=== PATIENT | male | born 1960 | race Caucasian/White ===

== ENCOUNTER 2018-07-15 17:47 | Emergency (ER) | payer OTHER, SELFPAY ==
[2018-07-15 17:52] VITALS: BP 157/79; PULSE 112; RESP 16; TEMP 36.8; O2SAT 97
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
[2018-07-15 19:06] VITALS: BP 124/77; PULSE 103; RESP 14; TEMP 37.2; O2SAT 95
== END 2018-07-15 19:09 | disposition home or self-care (01) ==
PROVIDERS: Emergency Provider Student in an Organized Health Care Education/Training Program
DX: S49.92XA Unspecified injury of left shoulder and upper arm, initial encounter (principal); R93.6 Abnormal findings on diagnostic imaging of limbs; V86.52XA Driver of snowmobile injured in nontraffic accident, initial encounter; Y93.29 Activity, other involving ice and snow; I10 Essential (primary) hypertension
CPT/HCPCS: 99283; 73030; L3650

== ENCOUNTER 2018-11-03 00:36 | Outpatient (CLI) | payer OTHER, SELFPAY ==
--- NOTE | 2018-11-03 13:05 | DI.CT_ITS ---
SYMPTOMS/DIAGNOSIS: CHRONIC NASAL CONGESTION, R09.81 CT SCAN OF THE SINUSES: Multiple contiguous axial images of the sinuses were performed according to the [facility] protocol. There are no priors for comparison. There is mild mucosal thickening in the left frontal sinus. There is near-complete opacification of the right frontal sinus. There is opacification of nearly all the ethmoid air cells bilaterally. There is moderate mucosal thickening in the maxillary sinuses bilaterally with a question of bilateral fluid levels. There is mild mucosal thickening in the sphenoid sinuses bilaterally. The mastoid air cells are well pneumatized. The osseous structures appear grossly unremarkable. The orbits and retroorbital soft tissues are unremarkable. IMPRESSION: 1. Findings consistent with moderately severe chronic sinusitis, predominantly involving the frontal sinuses and ethmoid air cells. 2. Possible small fluid levels in the maxillary sinuses suggesting acute sinusitis.
== END 2018-11-03 00:56 ==
PROVIDERS: Visit Provider Otolaryngology
DX: J32.1 Chronic frontal sinusitis (principal); J32.2 Chronic ethmoidal sinusitis; J01.00 Acute maxillary sinusitis, unspecified
CPT/HCPCS: 70486

== ENCOUNTER 2021-05-17 09:19 | Emergency (ER) | payer BC, SELFPAY ==
[2021-05-17] VITALS (21 sets, daily range): BP systolic 104–188; BP diastolic 50–93; PULSE 98–118; RESP 4–39; TEMP 37.1; O2SAT 89–99
--- NOTE | 2021-05-17 09:15 | RT.EKG_ITS ---
APPROVED REPORT Exam: Resting ECG Reason for Exam: sob Patient Location: E HR:105 bpm ECG Measurements Heart Rate 105 AXIS CO 140 P 39 QRSd 91 QRS 46 QT 290 T 211 QTc 383 Conclusion Sinus tachycardia...rate> 99 Nonspecific repol abnormality, diffuse leads...ST dep, T flat/neg, ant/lat/inf. Sinus. Less than 1mm ST depression in V3-4. No STEMI. I have reviewed and interpreted ECG and agree with software generated interpretation.
--- NOTE | 2021-05-17 09:21 | ED.GENADUL_ITS ---
Discharge Plan Disposition Patient Disposition: HOME Condition: Improving Discharge Details Clinical Impression: Acute asthma exacerbation Primary Care Provider: Roxana Duckworth ED Provider: Cielo Dawson Home Meds and New Rx's Prescriptions: New prednisone 20 mg tablet See Rx Instructions .ROUTE .COMPLEX Qty: 18 RF: 0 budesonide-formoterol [Symbicort] 80-4.5 mcg/actuation HFA aerosol inhaler 2 puff inhalation BID Qty: 10.2 RF: 0 levofloxacin 750 mg tablet 750 mg PO DAILY 5 Days Qty: 5 RF: 0 Continued albuterol sulfate [ProAir HFA] 8.5 GM HFA aerosol inhaler 2 puff Inhalation Q4H PRN Qty: 1 RF: 0 montelukast [Singulair] 10 mg tablet 10 mg PO DAILY 1 Days Qty: 30 RF: 6 hydrochlorothiazide 25 mg tablet 25 mg PO DAILY Qty: 90 RF: 3 lisinopril 10 mg tablet 10 mg PO DAILY Qty: 90 RF: 3 budesonide-formoterol [Symbicort] 80-4.5 mcg/actuation HFA aerosol inhaler 2 puff inhalation BID Qty: 10.2 RF: 11 multivitamin 1 EACH capsule 1 cap PO DAILY RF: 0 Discharge Instructions Instructions: Asthma (ED) Additional Instructions: Drink plenty of fluids and get plenty of rest. Prescriptions for steroids and Symbicort have been sent electronically to your pharmacy. Use the albuterol inhaler that you were given as needed and directed for shortness of breath, cough or wheezing. Call your primary care doctor on Wednesday to schedule a follow-up appointment for reevaluation. Follow-up with pulmonology Dr. Cuevas for reevaluation and for consideration for repeat pulmonary function testing. Referrals: Sully Cuevas MD [ [facility] STAFF PHYSICIAN] - Discharge Data Discharge Date/Time-TO BE ENTERED AT DEPARTURE: 05/17/21 14:14 Discharge Physician: Cielo Dawson Medical Decision Making 61-year-old male with a questionable history of asthma per pulmonary few years ago with a history of chronic sinus congestion and cough, on Symbicort which she ran out of 4 days ago presents with increasing shortness of breath and cough over the past few days, significantly worse today. Review of records note that patient had a PFT with Dr. Michael Brink in 2018 for a chronic nocturnal cough which was normal with a questionable diagnosis of asthma. Patient appears short of breath, speaking in 2-3 word sentences. Oxygen saturation 88% on room air, increased to 95% on 2 L nasal cannula. Heart rate 110s. He is afebrile. He has diminished breath sounds and wheezing throughout. Differential diagnosis includes asthma exacerbation, bronchitis, pneumonia, PE, Covid. Will place an IV, bolus ivf, obtain screening labs, CT chest and give albuterol and Solu-Medrol and reassess. Patient reassessed and he feels better. Peak flow increased from 150 to 300s. Labs and imaging reviewed. Normal white blood cell count at 7. Troponin negative. Covid negative. CT chest negative. Patient breathing improved and improvement in air movement but still with wheezing. Oxygen saturation 96% on 2 L, decreased to 92% on room air. Will give another neb treatment and reassess. Patient reassessed after additional neb and he felt much better and feels good to go home. Reassessment of lung sounds note significant improvement in air movement with scattered wheezing. Patient feels good to go home. Prescriptions for steroids and Symbicort sent electronically to his pharmacy. He was given an albuterol inhaler to go. As he has no complaint of fever, is a non-smoker, no productive sputum and no significant pneumonia noted on CT, will hold on antibiotics at this time. Patient placed on care management list to help arrange for a follow-up appointment with Dr. Winter for reevaluation and for consideration for repeat PFT. Usual and customary return precautions given prior to discharge. After patient discharge, in-house radiologist read the CT noting discrepancies with subtle bilateral infiltrates left lower lobe and right middle lobe with appropriate follow-up recommended. These findings were discussed with patient over the phone. He was notified that a prescription for Levaquin was sent electronically to his pharmacy. He was advised that he can start this antibiotic now or he can wait if his symptoms do not improve or worsen as he has no fever, productive cough with a normal white blood cell count at this time. Medical Records Medical records reviewed: Yes I reviewed the patient's medical records. Imaging Data Radiologic Study: Radiologist's impression: CTA Chest With Contrast Exam date and time: 05/17/2021 9:40 AM Age: 61 years old Clinical indication: Other: SOB TECHNIQUE: Imaging protocol: Computed tomographic angiography of the chest with contrast. 3D rendering (Not supervised by radiologist): MIP and/or 3D reconstructed images were created by the technologist. Radiation optimization: All CT scans at this facility use at least one of these dose optimization techniques: automated exposure control; mA and/or kV adjustment per patient size (includes targeted exams where dose is matched to clinical indication); or iterative reconstruction. Contrast material: OMNIPAQUE 350; Contrast volume: 100 ml; Contrast route: INTRAVENOUS (IV); COMPARISON: No relevant prior studies available. FINDINGS: Pulmonary arteries: Normal. No pulmonary emboli. Aorta: Unremarkable. No aortic aneurysm. No aortic dissection. Lungs: Unremarkable. No consolidation. No masses. Pleural spaces: Unremarkable. No pneumothorax. No pleural effusion. Heart: Unremarkable. No cardiomegaly. No pericardial effusion. Lymph nodes: Unremarkable. No enlarged lymph nodes. Bones/joints: Unremarkable. No acute fracture. Soft tissues: Unremarkable. IMPRESSION: No acute findings. Lab Data Lab results reviewed: Yes I reviewed the patient's lab results. Labs: Laboratory Tests Range/Units 05/17/21 05/17/21 05/17/21 09:40 09:40 09:40 WBC (4.4-10.8) 10^3/uL 7.65 RBC (4.36-5.78) 10^6/uL 4.48 Hgb (13.5-17.5) g/dL 13.8 Hct (40.0-50.0) % 41.5 MCV (80-95) fL 92.6 MCH (27.0-33.0) pg 30.8 MCHC (32.0-36.0) % 33.3 RDW (11.8-14.1) % 12.3 Plt Count (130-400) 10^3/uL 311 MPV (8.0-11.0) fL 9.7 Immature Gran % 0.3 Neutrophils % 59.8 Lymphocytes % 23.7 Monocytes % 6.7 Eosinophils % 8.5 Basophils % 1.0 Nucleated RBC % % 0 Absolute Neutrophils (1.2-6.7) 10^3/uL 4.58 Absolute Lymphocytes (1.2-3.4) 10^3/uL 1.81 Absolute Monocytes (0.1-0.8) 10^3/uL 0.51 Absolute Eosinophils (0.0-0.7) 10^3/uL 0.65 Absolute Basophils (0.0-0.2) 10^3/uL 0.08 Sodium (136-145) mmol/L 137 Potassium (3.5-5.1) mmol/L 3.7 Chloride (98-107) mmol/L 102 Carbon Dioxide (21.0-32.0) mmol/L 28.3 Anion Gap (3-11) mmol/L 6.7 BUN (7-18) mg/dL 11 Creatinine (0.70-1.30) mg/dL 1.0 Estimated GFR/1.73 m2 (mL/min/1.73m2) >= 60.00 Glucose (74-106) mg/dL 136 H Calcium (8.5-10.1) mg/dL 9.1 Magnesium (1.8-2.4) mg/dL 2.0 Total Bilirubin (0.2-1.0) mg/dL 0.4 AST (15-37) U/L 17 ALT (16-63) U/L 31 Alkaline Phosphatase (46-116) U/L 76 Troponin I (<0.06) ng/mL < 0.05 Total Protein (6.4-8.2) g/dL 7.7 Albumin (3.4-5.0) g/dL 4.0 COVID-19 Source SARS-CoV-2 (PCR) (Negative) Range/Units 05/17/21 09:48 WBC (4.4-10.8) 10^3/uL RBC (4.36-5.78) 10^6/uL Hgb (13.5-17.5) g/dL Hct (40.0-50.0) % MCV (80-95) fL MCH (27.0-33.0) pg MCHC (32.0-36.0) % RDW (11.8-14.1) % Plt Count (130-400) 10^3/uL MPV (8.0-11.0) fL Immature Gran % Neutrophils % Lymphocytes % Monocytes % Eosinophils % Basophils % Nucleated RBC % % Absolute Neutrophils (1.2-6.7) 10^3/uL Absolute Lymphocytes (1.2-3.4) 10^3/uL Absolute Monocytes (0.1-0.8) 10^3/uL Absolute Eosinophils (0.0-0.7) 10^3/uL Absolute Basophils (0.0-0.2) 10^3/uL Sodium (136-145) mmol/L Potassium (3.5-5.1) mmol/L Chloride (98-107) mmol/L Carbon Dioxide (21.0-32.0) mmol/L Anion Gap (3-11) mmol/L BUN (7-18) mg/dL Creatinine (0.70-1.30) mg/dL Estimated GFR/1.73 m2 (mL/min/1.73m2) Glucose (74-106) mg/dL Calcium (8.5-10.1) mg/dL Magnesium (1.8-2.4) mg/dL Total Bilirubin (0.2-1.0) mg/dL AST (15-37) U/L ALT (16-63) U/L Alkaline Phosphatase (46-116) U/L Troponin I (<0.06) ng/mL Total Protein (6.4-8.2) g/dL Albumin (3.4-5.0) g/dL COVID-19 Source Nasal/Nares SARS-CoV-2 (PCR) (Negative) Negative ECG Data Attestation: I personally reviewed and interpreted this ECG (s) as follows: Interpretation: Rate of 105, sinus, less than [address] depression in V3 and V4. No STEMI. AK 140. QTc 383. HPI General Mode of arrival: ambulatory . Date/Time Provider Initiated Documentation: 05/17/21 09:20 . Limitations to Documentation: no limitations . Information obtained by: patient . HPI Narrative: Patient is a 61-year-old male with a questionable history of asthma secondary to a chronic cough and chronic sinus congestion presents for cough and shortness of breath for the last few days, significantly worse this morning. 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 He states his cough has been dry and denies any fever. He states he has seen his primary and ENT for his chronic sinus congestion and has not been given a formal diagnosis. He states his sinus congestion is no worse than usual for the past 2 days. He is states he has occasionally smoked marijuana but does not smoke tobacco. He states he does chew tobacco. He took 2 ibuprofen this morning. He states he has been eating and drinking normally and denies any vomiting, chest pain or diarrhea. He denies any known exposure to coronavirus states he is fully vaccinated. He states he does not take albuterol but has been started on Symbicort in the last few months for his possible asthma and sinus congestion. He states he ran out of his Symbicort 4 days ago. Related Data Home Medications Medication Instructions Recorded Confirmed multivitamin 1 cap PO DAILY 07/17/15 05/17/21 albuterol sulfate [ProAir HFA] 2 puff INHALATION Q4H PRN #1 12/08/17 09/14/18 inhaler montelukast 10 mg tablet 10 mg PO DAILY 1 Days #30 tab-cap 01/05/19 hydrochlorothiazide 25 mg tablet 25 mg PO DAILY #90 tab-cap 12/31/20 05/17/21 lisinopril 10 mg tablet 10 mg PO DAILY #90 tab-cap 01/22/21 05/17/21 Symbicort 80 mcg-4.5 mcg/actuation 2 puff INHALATION BID #10.2 g NS 04/09/21 05/17/21 HFA aerosol inhaler budesonide-formoterol [Symbicort] 2 puff INHALATION BID #10.2 g 05/17/21 levofloxacin 750 mg PO DAILY 5 Days #5 tab 05/17/21 prednisone See Rx Instructions .ROUTE 05/17/21 .COMPLEX #18 tab Previous Rx's Medication Instructions Recorded albuterol sulfate [ProAir HFA] 2 puff INHALATION Q4H PRN #1 12/08/17 inhaler montelukast 10 mg tablet 10 mg PO DAILY 1 Days #30 tab-cap 01/05/19 hydrochlorothiazide 25 mg tablet 25 mg PO DAILY #90 tab-cap 12/31/20 lisinopril 10 mg tablet 10 mg PO DAILY #90 tab-cap 01/22/21 Symbicort 80 mcg-4.5 mcg/actuation 2 puff INHALATION BID #10.2 g NS 04/09/21 HFA aerosol inhaler budesonide-formoterol [Symbicort] 2 puff INHALATION BID #10.2 g 05/17/21 levofloxacin 750 mg PO DAILY 5 Days #5 tab 05/17/21 prednisone See Rx Instructions .ROUTE 05/17/21 .COMPLEX #18 tab Allergies Allergy/AdvReac Type Severity Reaction Status Date / Time No Known Allergies Allergy Unverified 05/17/21 09:33 General ARINA: 3 Review of Systems All systems reviewed & are unremarkable except as noted in HPI and below Constitutional Constitutional: Reports as per HPI, Denies chills and Denies fever(s) Eyes Eyes: Denies blurry vision ENT Ears, Nose, Mouth, and Throat: Denies dizziness, Reports nasal congestion, Denies sore throat and Denies throat swelling Cardiovascular Cardiovascular: Denies chest pain and Reports dyspnea Respiratory Respiratory: Reports cough and Reports dyspnea Gastrointestinal Gastrointestinal: Denies abdominal pain, Denies diarrhea and Denies vomiting Genitourinary Genitourinary: Denies hematuria and Denies dysuria Musculoskeletal Musculoskeletal: Denies back pain and Denies numbness Integumentary/Breasts Skin/Breast: Denies lesions and Denies rash Neurologic Neurologic: Denies dizziness, Denies localized weakness and Denies numbness Allergic/Immunologic Allergic/Immunologic: Denies throat swelling [facility] Medical History (Updated 05/17/21 @ 13:30 by Cielo Dawson DO) Asthma Hypertension Surgical History (Updated 05/17/21 @ 11:29 by Cielo Dawson DO) No significant past surgical history Family History Mother Diabetes Father Diabetes Heart disease Daughter No problems noted. Daughter No problems noted. Brother Essential hypertension Brother No problems noted. Social History Smoking/Tobacco Use Status: Current every day Tobacco Type: smokeless tobacco Smoking risk assessment performed?: Yes Alcohol Intake: never Drug use: Never Do you feel safe at home: Yes Do you feel safe in your relationship?: Yes Exam Const General: cooperative and no acute distress HENMT Head: normal to inspection Face and sinus: normal facial exam Eyes General: appearance normal, both eyes and all related structures EOM: EOM intact bilaterally Neck Neck: normal visual inspection and No submandibular swelling Lymphatic: no lymphadenopathy noted Chest Chest: normal inspection of the chest and no tenderness Resp Effort & Inspection: normal respiratory effort and not able to speak in complete sentences Auscultation: wheezes expiratory wheezes, inspiratory wheezes and scattered wheezes Cardio Rate: tachycardic Rhythm: regular rhythm GI Inspection: normal to inspection and obesity Palpation: soft, not firm, not rigid and nontender Auscultation: normal bowel sounds Skin General skin exam: no rashes or lesions noted Neuro General: patient alert, patient awake and patient oriented x3 Cognition: normal cognition Speech: speech normal Motor: muscle tone normal throughout Sensory Exam: no sensory deficits noted Extrem General: normal to inspection, full ROM, capillary refill normal, no calf tenderness bilaterally and no edema Psych Appearance: grossly normal Mental Status: mental status grossly normal Speech and Movement: speech and movement normal Affect: normal affect
--- NOTE | 2021-05-17 09:30 | DI.CT_ITS ---
Exam(s) CT CHEST PE CTA EXAM: CT CHEST PE CTA CLINICAL HISTORY: sob, cough, r/o pneumonia, pe. TECHNIQUE: Imaging Protocol: CT angiography of the chest was performed using pulmonary embolus suri col. Multi planar reconstructions were performed. CONTRAST MATERIAL: Intravenous: Omnipaque 350 Contrast volume: 100 cc COMPARISON: No exams were available for comparison FINDINGS: CHEST: Images are somewhat degraded by motion artifact PULMONARY ARTERIES: There are no obvious intraluminal filling defects to suggest acute pulmonary embo li. LUNGS: Mild increased markings in the left infrahilar region, somewhat exaggerated by motion artifact . Mild infiltrate in the medial segment right middle lobe adjacent to the right heart border. No om inous nodules.. No significant focal findings in the trachea and mainstem bronchi. There are no ple ural effusions. MEDIASTINUM: There is no hilar nor mediastinal adenopathy. Visualized thyroid unremarkable. CARDIAC: Heart size is upper normal. There is no pericardial effusion.Caliber of the thoracic aorta is within normal limits. There is no significant shift of the interventricular septum. PARTIALLY VISUALIZED UPPERMOST ABDOMEN: Hepatic steatosis. No adrenal masses evident. OSSEOUS: No significant osseous lesions.. IMPRESSION: 1. No evidence of acute pulmonary emboli. No evidence of pulmonary infarction.No pleural effusions. 2. Subtle bilateral infiltrates left lower lobe and right middle lobe, not associated with pleural ef fusions. Appropriate follow-up recommended. 3. No intrathoracic adenopathy evident. First read by [facility]. Final report called by myself to ER provider Wednesday05/17/2021 at 4:10 p.m.. RADIATION DOSE DELIVERED: 395.51mGy.cm Total DLP DATA REPOSITORY: All CT scans at this facility are submitted to the National Radiology Data Registry (NRDR) Dose Index Registry (DIR) with the [employer] (A[employer]). RADIATION OPTIMIZATION: All CT scans at this facility use at least one of these dose optimization te chniques: automated exposure control; mA and/or kV adjustment per patient size (includes targeted exa ms where dose is matched to clinical indication); or iterative reconstruction.
[2021-05-17] MEDS: methylPREDNISolone SUCC 125 MG VIAL IVP (09:50)
[2021-05-17 09:51] LABS: Abs Immature Grans 0.02 10^3/uL (0.0-0.06); Absolute Basophil Count 0.08 10^3/uL (0.0-0.2); Absolute Eosinophil Count 0.65 10^3/uL (0.0-0.7); Absolute Lymphocyte Count 1.81 10^3/uL (1.2-3.4); Absolute Monocyte Count 0.51 10^3/uL (0.1-0.8); Absolute Neutrophil Count 4.58 10^3/uL (1.2-6.7); Eosinophils % 8.5; HCT 41.5 % (40.0-50.0); HGB 13.8 g/dL (13.5-17.5); Immature Grans % 0.3; Lymphocytes % 23.7; MCH 30.8 pg (27.0-33.0); MCHC 33.3 % (32.0-36.0); MCV 92.6 fL (80-95); MPV 9.7 fL (8.0-11.0); Monocytes % 6.7; Neutrophils % 59.8; Nucleated RBC 0 %; Platelet Count 311 10^3/uL (130-400); RBC 4.48 10^6/uL (4.36-5.78); RDW 12.3 % (11.8-14.1); RDW-SD 42.4 fL; WBC 7.65 10^3/uL (4.4-10.8)
[2021-05-17 09:52] LABS: Source Nasal/Nares
[2021-05-17] MEDS: Normal Saline 1,000 ML 1000 ML IV (09:53)
[2021-05-17 10:08] LABS: ALT 31 U/L (16-63); AST 17 U/L (15-37); Alkaline Phosphatase 76 U/L (46-116); Anion Gap 6.7 mmol/L (3-11); BUN 11 mg/dL (7-18); Bilirubin, Total 0.4 mg/dL (0.2-1.0); CO2 28.3 mmol/L (21.0-32.0); Calcium 9.1 mg/dL (8.5-10.1); Chloride 102 mmol/L (98-107); Glucose 136 mg/dL (74-106); Potassium 3.7 mmol/L (3.5-5.1); Sodium 137 mmol/L (136-145); Total Protein 7.7 g/dL (6.4-8.2); Troponin I < 0.05 ng/mL (<0.06)
[2021-05-17] MEDS: Albuterol 2.5 MG/3 ML INH SOLN VIAL 5 MG UPD ×2 (10:08→12:13)
[2021-05-17] MEDS: Albuterol/Ipratropium 3 ML UPD VIAL UPD (10:09)
[2021-05-17] MEDS: Omnipaque 350 MG/ML 100 ML BTL IV (10:30)
[2021-05-17 10:47] LABS: COVID-19 PCR Negative (Negative)
--- NOTE | 2021-05-17 11:50 | DI.VRAD_ITS ---
PROCEDURE INFORMATION: Exam: CTA Chest With Contrast Exam date and time: 05/17/2021 9:40 AM Age: 61 years old Clinical indication: Other: SOB TECHNIQUE: Imaging protocol: Computed tomographic angiography of the chest with contrast. 3D rendering (Not supervised by radiologist): MIP and/or 3D reconstructed images were created by the technologist. Radiation optimization: All CT scans at this facility use at least one of these dose optimization techniques: automated exposure control; mA and/or kV adjustment per patient size (includes targeted exams where dose is matched to clinical indication); or iterative reconstruction. Contrast material: OMNIPAQUE 350; Contrast volume: 100 ml; Contrast route: INTRAVENOUS (IV); COMPARISON: No relevant prior studies available. FINDINGS: Pulmonary arteries: Normal. No pulmonary emboli. Aorta: Unremarkable. No aortic aneurysm. No aortic dissection. Lungs: Unremarkable. No consolidation. No masses. Pleural spaces: Unremarkable. No pneumothorax. No pleural effusion. Heart: Unremarkable. No cardiomegaly. No pericardial effusion. Lymph nodes: Unremarkable. No enlarged lymph nodes. Bones/joints: Unremarkable. No acute fracture. Soft tissues: Unremarkable. IMPRESSION: No acute findings. Dictated and Authenticated by: Rogerio Up MD. Ordering:EM Buck MD
--- NOTE | 2021-05-17 18:01 | NUR.NOTE ---
Nursing Note: Referral faxed to [facility] for asthma, within 2 weeks. Vangie Calle
== END 2021-05-17 14:14 | disposition home or self-care (01) ==
PROVIDERS: Emergency Provider Physician Assistant
DX: J45.901 Unspecified asthma with (acute) exacerbation (principal); R09.02 Hypoxemia; Z20.822 Contact with and (suspected) exposure to COVID-19; Z03.818 Encounter for observation for suspected exposure to other biological agents ruled out
CPT/HCPCS: 36415; 71275; 80053; 87635; 93005; 94640; 96361; 96374; 99285; 83735; 84484; 85025; 93010; J2930; J3490; J7613; J7620

== ENCOUNTER → 2025-04-09 13:36 | Outpatient (BNVA) | payer MEDICARE, SELFPAY | PROVIDERS: PCP Nurse Practitioner Family; Referring Provider Nurse Practitioner Family; Visit Provider Physician Assistant Surgical | DX: J45.909 Unspecified asthma, uncomplicated (principal); J31.0 Chronic rhinitis; J33.9 Nasal polyp, unspecified | CPT/HCPCS: 99214 ==

== ENCOUNTER 2025-07-11 01:57 | Outpatient (CLI) | payer MEDICARE, SELFPAY ==
[2025-07-11 09:46] LABS: Hemoglobin A1C 6.3 % (<5.7)
[2025-07-11 09:49] LABS: ALT 20 U/L (10-49); AST 22 U/L (<34); Albumin 4.5 g/dL (3.4-5.0); Alkaline Phosphatase 73 U/L (46-116); Anion Gap 6.2 mmol/L (3-11); BUN 16 mg/dL (9-23); Bilirubin, Total 0.60 mg/dL (0.2-1.2); CO2 27.8 mmol/L (20.0-31.0); Calcium 9.3 mg/dL (8.3-10.6); Chloride 103 mmol/L (98-107); Cholesterol 189 mg/dL (<200); Glucose 113 mg/dL (74-106); HDL Cholesterol 42 mg/dL (>40); Potassium 3.8 mmol/L (3.5-5.1); Sodium 137 mmol/L (136-145); Total Protein 7.6 g/dL (5.7-8.2)
[2025-07-11 18:03] LABS: PSA, Screening 3.5 ng/mL (<=4.5)
== END 2025-07-11 01:58 | disposition home or self-care (01) ==
PROVIDERS: PCP Nurse Practitioner Family; Visit Provider Nurse Practitioner Family
DX: Z13.220 Encounter for screening for lipoid disorders (principal); J45.909 Unspecified asthma, uncomplicated; I10 Essential (primary) hypertension; Z12.5 Encounter for screening for malignant neoplasm of prostate
CPT/HCPCS: 36415; 80053; 80061; 84153; 83036